=== PATIENT | male | born 1990 ===

== ENCOUNTER 2020-07-01 01:37 | Emergency (ER) | payer SELFPAY ==
[~2020-07-01] VITALS: Ht 162.6 cm; Wt 51.7 kg
--- NOTE | 2020-07-01 01:48 | NUR ---
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
--- NOTE | 2020-07-01 03:04 | NUR ---
Lupe macdonald in [facility] - 07/01/20 at 0304 by JEANIE assessss
--- NOTE | 2020-07-01 03:04 | NUR ---
assessment made. chart up for MD to see. c/o pressure at the back of neck x 2 hrs.
--- NOTE | 2020-07-01 04:18 | NUR ---
PT RESTING IN BED WITH FRIEND AT PT SIDE, PT HAS NO WANTS OR NEEDS AT THIS TIME, PT ON MONITOR, [facility] NURSE WILL CONTINUE TO MONITOR PT.
[2020-07-01 04:49] VITALS: BP 97/59
== END 2020-07-01 04:51 | disposition home or self-care (01) ==
LOC: ED 04:40
DX: R06.00 Dyspnea, unspecified (principal); F41.9 Anxiety disorder, unspecified; I44.4 Left anterior fascicular block; R06.02 Shortness of breath
CPT/HCPCS: 71046; 93005; 99283